=== PATIENT | female | born 1975 | race Caucasian/White ===

== ENCOUNTER 2017-07-28 14:05 | Emergency (ER) | payer BC, MEDICAID ==
[2017-07-28] MEDS: IBUPROFEN 800 MG TAB PO (14:41)
== END 2017-07-28 15:20 | disposition home or self-care (01) ==
LOC: FTE 14:05
DX: J02.9 Acute pharyngitis, unspecified (principal)
CPT/HCPCS: 99283; Z7502

== ENCOUNTER 2017-08-07 09:01 | Emergency (ER) | payer BC ==
[2017-08-07] MEDS: predniSONE 20 MG TAB PO (10:13)
[2017-08-07 12:09] LABS: MONOTEST Positive (NEG)
== END 2017-08-07 12:33 | disposition home or self-care (01) ==
LOC: FTE 09:01
DX: R21 Rash and other nonspecific skin eruption (principal); J02.0 Streptococcal pharyngitis
CPT/HCPCS: 86308; 99283

== ENCOUNTER 2018-11-15 19:10 | Emergency (ER) | payer BC ==
[2018-11-15 20:21] LABS: URINE BLOOD (Dip) POC 2+ (NEGATIVE); URINE GLUCOSE (Dip) POC Negative (NEGATIVE); URINE KETONES (Dip) POC Negative (NEGATIVE); URINE LEUKOCYTE EST (Dip) POC 1+ (NEGATIVE); URINE NITRITE (Dip) POC Negative (NEGATIVE); URINE TOTAL PROTEIN POC Negative (NEGATIVE)
== END 2018-11-15 20:42 | disposition home or self-care (01) ==
LOC: FTE 19:10
DX: N30.01 Acute cystitis with hematuria (principal)
CPT/HCPCS: 81003; 81025; 99283